=== PATIENT | female | born 1980 | race Two or more races ===

== ENCOUNTER 2025-04-11 07:00 | Inpatient (IN) | payer OTHER ==
[~2025-04-11] VITALS: Ht 152.4 cm; Wt 54.0 kg
[2025-04-13] MEDS ORDERED: FYAVOLV 0.5 MG1 EACH PO (10:41)
[2025-04-13] MEDS ORDERED: DAFLONEX-XL 11300 MG PO (10:42)
[2025-04-13] MEDS ORDERED: ZYRTEC10 M3 PO (10:43)
[2025-04-13] MEDS ORDERED: PROTONIX20 MG PO (10:43)
[2025-04-13] MEDS ORDERED: PEPCID AC20 MG PO (10:43)
[2025-04-13 10:44] VITALS: BP 111/66
[2025-04-13 10:48] VITALS: BP 123/78
[2025-04-13 10:58] LABS: PH,URINE 6.5 (5.0-8.0); URINE APPEARANCE Clear; URINE BILIRRUBIN Negative (NEGATIVE); URINE BLOOD Negative; URINE COLOR Yellow; URINE GLUCOSE Negative (NEGATIVE); URINE KETONE Negative (NEGATIVE); URINE LEUKOCYTE Negative; URINE NITRATE Negative; URINE PROTEIN Negative (NEGATIVE); URINE UROBILINOGEN 0.2 E.U./dl
[2025-04-13 10:59] LABS: BASO % 0.5 % (0.1-1.2); EOS # 0.08 (0.04-0.54); EOS % 1.3 % (0.7-7.0); HEMATOCRIT 36.3 % (34.1-44.9); HEMOGLOBIN 11.7 g/dL (11.2-15.7); LYMPH # 2.14 (1.18-3.74); LYMPH % 33.4 % (19.3-53.1); MEAN CORPUSCULAR HEMOGLOBIN 27.3 pg (25.6-32.2); MONO # 0.42 (0.24-0.82); MONO % 6.6 % (4.7-12.5); NEUT # 3.72 (1.56-6.13); PLATELET COUNT 316 K/uL (163-369); RED BLOOD COUNT 4.28 M/uL (3.93-5.22); RED CELL DISTRIBUTION WIDTH 12.9 % (11.6-14.4)
[2025-04-13 11:03] LABS: URINE BACTERIA 336.5 uL (0.0-1933); URINE EPITHELIAL CELLS 17.8 uL (0.0-38.8)
[2025-04-13 11:19] LABS: URINE CAST 0.14 uL (0.0-1.40); URINE RBC 1.4 uL (0.0-20.8)
[2025-04-13 11:31] LABS: INR 1.01; PARTIAL THROMBOPLASTIN TIME 22.6 SECONDS (22.0-34.0)
[2025-04-13 11:49] LABS: ALBUMIN 3.8 gm/dL (3.4-5.0); BILIRUBIN TOTAL 0.41 mg/dL (0.3-1.2); CALCIUM 8.8 mg/dL (8.5-10.1); CREATININE SERUM 0.76 mg/dL (0.55-1.02); GFR 81.57; POTASSIUM 4.06 mEq/L (3.5-5.1); TOTAL PROTEIN 6.8 gm/dL (6.4-8.2)
[2025-04-13 13:43] LABS: RH POSITIVE
[2025-04-19] MEDS ORDERED: CEFOXITIN SODIUM 2,000 MG VIAL IV ONE (07:01)
[2025-04-19] MEDS ORDERED: METRONIDAZOLE/SODIUM CHLORIDE 500 MG/100 ML PIGGYBACK IV ONE (07:02)
[2025-04-19] MEDS ORDERED: POVIDONE-IODINE 118 ML BOTT TOP ONE (07:08)
[2025-04-19] MEDS ORDERED: CEFAZOLIN SODIUM 1,000 MG VIAL ONE (07:08)
[2025-04-19] MEDS ORDERED: BUPIVACAINE HCL/Mpf 0.5% 10ML VIAL ONE (10:29)
[2025-04-19] MEDS ORDERED: ONDANSETRON HCL 2 MG/ML VIAL IV PRN (11:30)
[2025-04-19] MEDS ORDERED: CYCLOBENZAPRINE HCL 5 MG TABLET PO PRN (11:30)
[2025-04-19] MEDS ORDERED: AMINOCAPROIC ACID 250 MG/ML VIAL IV ONE ×2 (11:30→15:06)
[2025-04-19] MEDS ORDERED: RINGERS SOLUTION,LACTATED 1,000 ML IV SCH (11:30)
[2025-04-19] MEDS ORDERED: ACETAMINOPHEN 500 MG GEL..CAP PO SCH (12:00)
[2025-04-19] MEDS ORDERED: OxyCODONE HCL 5 MG TABLET (ROXICODONE) PO SCH (12:00)
[2025-04-19] MEDS ORDERED: AMINOCAPROIC ACID 250 MG/ML VIAL IV NR (14:00)
[2025-04-19 15:46] LABS: BASO % 0.1 % (0.1-1.2); HEMATOCRIT 32.3 % (34.1-44.9); HEMOGLOBIN 10.7 g/dL (11.2-15.7); LYMPH # 0.85 (1.18-3.74); LYMPH % 5.3 % (19.3-53.1); MEAN CORPUSCULAR HEMOGLOBIN 27.9 pg (25.6-32.2); MONO # 0.61 (0.24-0.82); MONO % 3.8 % (4.7-12.5); NEUT # 14.63 (1.56-6.13); NEUT % 90.6 % (34.0-71.1); PLATELET COUNT 250 K/uL (163-369); RED BLOOD COUNT 3.84 M/uL (3.93-5.22); RED CELL DISTRIBUTION WIDTH 13.1 % (11.6-14.4)
[2025-04-19 16:36] VITALS: BP 111/66
[2025-04-19 18:35] LABS: BASO % 0.2 % (0.1-1.2); HEMATOCRIT 33.1 % (34.1-44.9); HEMOGLOBIN 10.9 g/dL (11.2-15.7); LYMPH # 0.99 (1.18-3.74); LYMPH % 6.4 % (19.3-53.1); MEAN CORPUSCULAR HEMOGLOBIN 28.2 pg (25.6-32.2); MONO # 0.68 (0.24-0.82); MONO % 4.4 % (4.7-12.5); NEUT # 13.73 (1.56-6.13); NEUT % 88.7 % (34.0-71.1); PLATELET COUNT 267 K/uL (163-369); RED BLOOD COUNT 3.86 M/uL (3.93-5.22); RED CELL DISTRIBUTION WIDTH 13.2 % (11.6-14.4)
[2025-04-19 21:10] VITALS: BP 113/68
[2025-04-20 00:55] VITALS: BP 108/62
[2025-04-20 07:16] LABS: BASO % 0.3 % (0.1-1.2); EOS # 0.07 (0.04-0.54); EOS % 0.8 % (0.7-7.0); HEMATOCRIT 29.7 % (34.1-44.9); HEMOGLOBIN 9.7 g/dL (11.2-15.7); LYMPH # 2.03 (1.18-3.74); LYMPH % 22.7 % (19.3-53.1); MEAN CORPUSCULAR HEMOGLOBIN 27.5 pg (25.6-32.2); MONO # 0.74 (0.24-0.82); MONO % 8.3 % (4.7-12.5); NEUT # 6.03 (1.56-6.13); NEUT % 67.5 % (34.0-71.1); PLATELET COUNT 230 K/uL (163-369); RED BLOOD COUNT 3.53 M/uL (3.93-5.22); RED CELL DISTRIBUTION WIDTH 13.1 % (11.6-14.4)
[2025-04-20 08:00] VITALS: BP 98/55; O2SAT 96
[2025-04-20 09:30] LABS: BASO % 0.3 % (0.1-1.2); EOS # 0.06 (0.04-0.54); EOS % 0.6 % (0.7-7.0); HEMATOCRIT 32.9 % (34.1-44.9); HEMOGLOBIN 10.5 g/dL (11.2-15.7); LYMPH # 2.12 (1.18-3.74); LYMPH % 22.2 % (19.3-53.1); MEAN CORPUSCULAR HEMOGLOBIN 27.5 pg (25.6-32.2); MONO # 0.53 (0.24-0.82); MONO % 5.6 % (4.7-12.5); NEUT # 6.78 (1.56-6.13); NEUT % 71.1 % (34.0-71.1); PLATELET COUNT 241 K/uL (163-369); RED BLOOD COUNT 3.82 M/uL (3.93-5.22); RED CELL DISTRIBUTION WIDTH 13.2 % (11.6-14.4)
[2025-04-20] MEDS ORDERED: AMINOCAPROIC ACID 250 MG/ML VIAL IV ONE (09:45)
[2025-04-20] MEDS ORDERED: FAMOtidine 40 MG TABLET PO SCH (12:00)
[2025-04-20 17:08] VITALS: BP 139/78
== END 2025-04-20 18:08 | disposition home or self-care (01) | DRG 742 ==
LOC: OB/GYN 04-19 05:25 → O/R 04-19 05:25 → SURG 04-19 08:45 → OB/GYN 04-19 11:12
PROVIDERS: ADMIT Student in an Organized Health Care Education/Training Program; ATTEND Student in an Organized Health Care Education/Training Program
PROC: 0UT74ZZ Resection of Bilateral Fallopian Tubes, Percutaneous Endoscopic Approach (ICD-10-PCS; 2025-04-19)
PROC: 0TNB4ZZ Release Bladder, Percutaneous Endoscopic Approach (ICD-10-PCS; 2025-04-19)
PROC: 0WBH4ZZ Excision of Retroperitoneum, Percutaneous Endoscopic Approach (ICD-10-PCS; 2025-04-19)
PROC: 0DBP4ZZ Excision of Rectum, Percutaneous Endoscopic Approach (ICD-10-PCS; 2025-04-19)
PROC: 0UBF4ZZ Excision of Cul-de-sac, Percutaneous Endoscopic Approach (ICD-10-PCS; 2025-04-19)
PROC: 8E0W4CZ Robotic Assisted Procedure of Trunk Region, Percutaneous Endoscopic Approach (ICD-10-PCS; 2025-04-19)
PROC: 0UT94ZZ Resection of Uterus, Percutaneous Endoscopic Approach (ICD-10-PCS; principal; 2025-04-19 08:45)
DX: N80.03 Adenomyosis of the uterus (principal); D68.01 Von Willebrand disease, type 1; N93.9 Abnormal uterine and vaginal bleeding, unspecified; Z90.710 Acquired absence of both cervix and uterus; N80.9 Endometriosis, unspecified; N80.399 Endometriosis of the pelvic peritoneum, other specified sites, unspecified depth; N80.329 Endometriosis of the posterior cul-de-sac, unspecified depth
CPT/HCPCS: 58571; 58662; 52000; 45171; S2900